=== PATIENT | male | born 1970 | race Caucasian/White ===

== ENCOUNTER 2016-04-12 04:18 | Inpatient (IN) | payer OTHER ==
[~2016-04-12] VITALS: Ht 175.3 cm; Wt 98.0 kg
[~2016-04-12 04:18] MED LIST: ASPI-1093 PO; CARV6 PO; DSS100 PO; FURO20 PO; SIMV-260 PO
[2016-04-12 04:50] LABS: BASOPHILS % (AUTO) 0.8 % (0.0-2.0); EOSINOPHILS % (AUTO) 2.1 % (1.0-6.0); HEMATOCRIT 36.3 % (41-53); HEMOGLOBIN 11.8 g/dL (13.5-17.5); LYMPHOCYTES # (AUTO) 1.2 K/uL (1.0-4.8); LYMPHOCYTES % (AUTO) 13.7 % (22.0-44.0); MEAN CORPUSCULAR HEMOGLOBIN 28.6 pg (26.0-34.0); MEAN CORPUSCULAR HGB CONC 32.6 G/dL (31.0-37.0); MEAN CORPUSCULAR VOLUME 88 fL (80-100); MONOCYTES # (AUTO) 0.8 K/uL (0.1-1.0); NEUTROPHILS # (AUTO) 6.8 K/uL (1.8-7.7); NEUTROPHILS % (AUTO) 74.4 % (40.0-70.0); PLATELET COUNT (AUTO) 223 K/uL (150-450); RED BLOOD CELL COUNT(AUTO) 4.13 MIL/uL (4.50-5.90); RED CELL DISTRIBUTION WIDTH 16.3 % (11.5-14.5); WHITE BLOOD COUNT (AUTO) 9.1 K/uL (4.5-11.0)
[2016-04-12 04:58] LABS: INR 1.3 (0.9-1.1); PROTHROMBIN TIME 13.3 SEC (9.4-11.6)
[2016-04-12 05:05] LABS: TROPONIN I 0.78 ng/mL (0.00-0.05)
[2016-04-12 05:08] LABS: ANION GAP 9 mmol/L (8-16); CARBON DIOXIDE 26 mmol/L (22-29); CHLORIDE 97 mmol/L (98-107); CREATININE 1.28 mg/dL (0.60-1.30); GLOMERULAR FILTR. RATE CALC > 60 mL/min (>60); POTASSIUM 4.2 mmol/L (3.5-5.1); SODIUM SERUM 132 mmol/L (136-145); UREA NITROGEN, BLOOD 30 mg/dL (7-18)
[2016-04-12 05:12] LABS: ALANINE AMINOTRANSFERASE 55 U/L (12-78); ALBUMIN 3.2 g/dL (3.4-5.0); BILIRUBIN,TOTAL 2.4 mg/dL (0.1-1.0); TOTAL PROTEIN, SERUM 8.8 g/dL (6.4-8.2)
[2016-04-12] MEDS ORDERED: FUROSEMIDE 40 MG/4 ML VIAL IVP ONE (05:15)
[2016-04-12] MEDS ORDERED: NITROGLYCERIN 2% (1 GM=INCH) PACKET TP ONE (05:15)
[2016-04-12] MEDS ORDERED: 0.9% SODIUM CHLORIDE 10 ML SYRINGE IVP PRN (05:15)
[2016-04-12] MEDS ORDERED: ONDANSETRON HCL 4 MG/2 ML VIAL IVP PRN (05:15)
[2016-04-12] MEDS ORDERED: ASPIRIN 325 MG TABLET PO ONE (05:15)
[2016-04-12] MEDS ORDERED: ACETAMINOPHEN 325 MG TABLET PO PRN (05:15)
[2016-04-12] MEDS ORDERED: HEPARIN SODIUM 25000 UNITS/D5W 250 ML IV PRN ×2 (05:30→05:45)
[2016-04-12 05:38] LABS: B-TYPE NATRIURETIC PEPTIDE 587 pg/mL (0-100)
[2016-04-12] MEDS ORDERED: HEPARIN SODIUM,PORCINE 5,000 UNITS/ML VIAL IVP PRN ×2 (05:45)
[2016-04-12] MEDS ORDERED: HEPARIN SODIUM,PORCINE 5,000 UNITS/ML VIAL IVP ONE (05:45)
[2016-04-12 05:56] LABS: ASPARTATE AMINOTRANSFERASE 48 U/L (15-37); CREATINE KINASE MB 1.7 ng/mL (0-5); CREATINE KINASE, TOTAL 133 U/L (39-308)
[2016-04-12 06:35] VITALS: BP 112/45
[2016-04-12 08:11] VITALS: BP 105/65
[2016-04-12] MEDS: FUROSEMIDE 40 MG/4 ML VIAL IVP SCH ×2 (09:00→21:04)
[2016-04-12] MEDS: ASPIRIN 81 MG EC TABLET PO SCH (09:00)
[2016-04-12] MEDS: CARVEDILOL 6.25 MG TABLET PO SCH ×2 (09:00→21:04)
[2016-04-12 11:59] VITALS: BP 152/96
[2016-04-12] MEDS: HEPARIN SODIUM,PORCINE 5,000 UNITS/ML VIAL SQ SCH (16:00)
[2016-04-12 16:18] VITALS: BP 142/50
[2016-04-12 19:34] VITALS: BP 119/66
[2016-04-12] MEDS: SIMVASTATIN 20 MG TABLET PO SCH (21:04)
[2016-04-13] VITALS (7 sets, daily range): BP systolic 102–145; BP diastolic 60–91
[2016-04-13 05:59] LABS: BASOPHILS # (AUTO) 0.01 K/uL (0.00-0.20); BASOPHILS % (AUTO) 0.2 % (0.0-2.0); EOSINOPHILS # (AUTO) 0.04 K/uL (0.00-0.70); EOSINOPHILS % (AUTO) 0.48 % (1.0-6.0); HEMATOCRIT 34.7 % (41-53); HEMOGLOBIN 11.6 g/dL (13.5-17.5); LYMPHOCYTES # (AUTO) 1.2 K/uL (1.0-4.8); LYMPHOCYTES % (AUTO) 15.8 % (22.0-44.0); MEAN CORPUSCULAR HEMOGLOBIN 29.1 pg (26.0-34.0); MEAN CORPUSCULAR HGB CONC 33.4 G/dL (31.0-37.0); MEAN CORPUSCULAR VOLUME 87 fL (80-100); MONOCYTES # (AUTO) 0.7 K/uL (0.1-1.0); MONOCYTES % (AUTO) 9.4 % (2.0-9.0); NEUTROPHILS # (AUTO) 5.5 K/uL (1.8-7.7); NEUTROPHILS % (AUTO) 74.2 % (40.0-70.0); PLATELET COUNT (AUTO) 228 K/uL (150-450); RED BLOOD CELL COUNT(AUTO) 3.99 MIL/uL (4.50-5.90); WHITE BLOOD COUNT (AUTO) 7.4 K/uL (4.5-11.0)
[2016-04-13 06:29] LABS: ALANINE AMINOTRANSFERASE 50 U/L (12-78); ALBUMIN 2.8 g/dL (3.4-5.0); ANION GAP 8 mmol/L (8-16); ASPARTATE AMINOTRANSFERASE 48 U/L (15-37); BILIRUBIN,TOTAL 3.2 mg/dL (0.1-1.0); CALCIUM, TOTAL 8.7 mg/dL (8.8-10.5); CARBON DIOXIDE 25 mmol/L (22-29); CHLORIDE 100 mmol/L (98-107); CREATININE 1.04 mg/dL (0.60-1.30); GLOMERULAR FILTR. RATE CALC > 60 mL/min (>60); POTASSIUM 3.9 mmol/L (3.5-5.1); SODIUM SERUM 133 mmol/L (136-145); UREA NITROGEN, BLOOD 29 mg/dL (7-18)
[2016-04-13 07:56] LABS: RBC MORPHOLOGY COMMENT ABNORMAL RBC MORPH
[2016-04-13] MEDS: HEPARIN SODIUM,PORCINE 5,000 UNITS/ML VIAL SQ SCH ×4 (08:00→23:38)
[2016-04-13] MEDS: FUROSEMIDE 40 MG/4 ML VIAL IVP SCH ×2 (08:25→20:09)
[2016-04-13] MEDS: ASPIRIN 81 MG EC TABLET PO SCH (08:27)
[2016-04-13] MEDS: CARVEDILOL 6.25 MG TABLET PO SCH ×2 (08:28→20:10)
[2016-04-13] MEDS: LISINOPRIL 10 MG TABLET PO SCH (10:16)
[2016-04-13] MEDS: SIMVASTATIN 20 MG TABLET PO SCH (20:10)
[2016-04-14 04:36] VITALS: BP 121/85
[2016-04-14 07:47] VITALS: BP 118/80
[2016-04-14] MEDS: LISINOPRIL 10 MG TABLET PO SCH (07:53)
[2016-04-14] MEDS: CARVEDILOL 6.25 MG TABLET PO SCH (07:54)
[2016-04-14] MEDS: ASPIRIN 81 MG EC TABLET PO SCH (07:54)
[2016-04-14] MEDS: HEPARIN SODIUM,PORCINE 5,000 UNITS/ML VIAL SQ SCH ×2 (07:55→16:00)
[2016-04-14 08:04] LABS: BASOPHILS % (AUTO) 1.4 % (0.0-2.0); EOSINOPHILS % (AUTO) 2.7 % (1.0-6.0); HEMATOCRIT 35.8 % (41-53); HEMOGLOBIN 11.7 g/dL (13.5-17.5); LYMPHOCYTES # (AUTO) 1.1 K/uL (1.0-4.8); LYMPHOCYTES % (AUTO) 13.4 % (22.0-44.0); MEAN CORPUSCULAR HEMOGLOBIN 28.9 pg (26.0-34.0); MEAN CORPUSCULAR HGB CONC 32.7 G/dL (31.0-37.0); MEAN CORPUSCULAR VOLUME 88 fL (80-100); MONOCYTES # (AUTO) 0.9 K/uL (0.1-1.0); MONOCYTES % (AUTO) 10.8 % (2.0-9.0); NEUTROPHILS # (AUTO) 5.9 K/uL (1.8-7.7); NEUTROPHILS % (AUTO) 71.7 % (40.0-70.0); PLATELET COUNT (AUTO) 233 K/uL (150-450); RED BLOOD CELL COUNT(AUTO) 4.05 MIL/uL (4.50-5.90); RED CELL DISTRIBUTION WIDTH 16.2 % (11.5-14.5); WHITE BLOOD COUNT (AUTO) 8.2 K/uL (4.5-11.0)
[2016-04-14] MEDS: FUROSEMIDE 40 MG/4 ML VIAL IVP SCH (08:16)
[2016-04-14 08:25] LABS: ALANINE AMINOTRANSFERASE 47 U/L (12-78); ALBUMIN 2.7 g/dL (3.4-5.0); ANION GAP 7 mmol/L (8-16); ASPARTATE AMINOTRANSFERASE 42 U/L (15-37); CALCIUM, TOTAL 8.5 mg/dL (8.8-10.5); CARBON DIOXIDE 27 mmol/L (22-29); CHLORIDE 100 mmol/L (98-107); CREATININE 0.88 mg/dL (0.60-1.30); GLOMERULAR FILTR. RATE CALC > 60 mL/min (>60); POTASSIUM 3.9 mmol/L (3.5-5.1); SODIUM SERUM 134 mmol/L (136-145); TOTAL PROTEIN, SERUM 7.8 g/dL (6.4-8.2); UREA NITROGEN, BLOOD 22 mg/dL (7-18)
[2016-04-14] MEDS ORDERED: SPIRONOLACTONE 50 MG TABLET PO ONE (10:15)
[2016-04-14] MEDS ORDERED: SPIRONOLACTONE 25 MG TABLET PO ONE (10:30)
[2016-04-14 11:01] VITALS: BP 113/81
[2016-04-14 15:48] VITALS: BP 117/78
== END 2016-04-14 18:20 | disposition home or self-care (01) | DRG 194 ==
LOC: EMS 04:19 → 5S 05:28 → 5N 15:00 → 5S 23:22
PROVIDERS: ADMIT Hospitalist; ATTEND Hospitalist
DX: I13.0 Hypertensive heart and chronic kidney disease with heart failure and stage 1 through stage 4 chronic kidney disease, or unspecified chronic kidney disease (principal); I21.4 Non-ST elevation (NSTEMI) myocardial infarction; G92 Toxic encephalopathy; N17.9 Acute kidney failure, unspecified; I42.9 Cardiomyopathy, unspecified; I50.23 Acute on chronic systolic (congestive) heart failure; N18.9 Chronic kidney disease, unspecified; F15.10 Other stimulant abuse, uncomplicated; F29 Unspecified psychosis not due to a substance or known physiological condition; I25.10 Atherosclerotic heart disease of native coronary artery without angina pectoris; Z95.810 Presence of automatic (implantable) cardiac defibrillator; Z79.899 Other long term (current) drug therapy; Z79.82 Long term (current) use of aspirin; Z91.19 Patient's noncompliance with other medical treatment and regimen; Z82.49 Family history of ischemic heart disease and other diseases of the circulatory system
CPT/HCPCS: 83735; 87081; 93005; 96374; 96375; 99285; G0480; J1644; J1940

== ENCOUNTER 2019-07-03 12:45 | Inpatient (IN) | payer OTHER ==
[~2019-07-03] VITALS: Ht 167.6 cm; Wt 108.2 kg
[~2019-07-03 12:45] MED LIST changes: -ASPI-1093 PO; +ASPI-1111 PO
[2019-07-03] MEDS ORDERED: ACETAMINOPHEN 500 MG TABLET PO ONE (13:00)
[2019-07-03] MEDS ORDERED: KETOROLAC TROMETHAMINE 30 MG/ML VIAL IVP ONE (14:15)
[2019-07-03 14:21] LABS: HEMATOCRIT 28.5 % (41-53); HEMOGLOBIN 8.6 g/dL (13.5-17.5); MEAN CORPUSCULAR HEMOGLOBIN 24.3 pg (26.0-34.0); MEAN CORPUSCULAR HGB CONC 30.3 G/dL (31.0-37.0); MEAN CORPUSCULAR VOLUME 80 fL (80-100); PLATELET COUNT (AUTO) 306 K/uL (150-450); RED BLOOD CELL COUNT(AUTO) 3.56 MIL/uL (4.50-5.90); RED CELL DISTRIBUTION WIDTH 18.2 % (11.5-14.5)
[2019-07-03] MEDS ORDERED: VANCOMYCIN HCL 1 GM/D5% WATER 200 ML IV ONE (14:30)
[2019-07-03] MEDS ORDERED: PIPERACILLIN/TAZO 3.375 GM/D5W 50 ML IV ONE (14:30)
[2019-07-03 14:34] LABS: ANION GAP 11 mmol/L (8-16); CALCIUM, TOTAL 8.4 mg/dL (8.8-10.5); CARBON DIOXIDE 25 mmol/L (22-29); CHLORIDE 97 mmol/L (98-107); CREATININE 1.22 mg/dL (0.60-1.30); GLOMERULAR FILTR. RATE CALC > 60 mL/min (>60); GLUCOSE,RANDOM 203 mg/dL (70-110); POTASSIUM 3.6 mmol/L (3.5-5.1); SODIUM SERUM 133 mmol/L (136-145); UREA NITROGEN, BLOOD 17 mg/dL (7-18)
[2019-07-03 14:49] LABS: B-TYPE NATRIURETIC PEPTIDE 2130 pg/mL (0-100)
[2019-07-03 14:58] LABS: ALANINE AMINOTRANSFERASE 138 U/L (12-78); ALKALINE PHOSPHATASE 115 U/L (46-116); ASPARTATE AMINOTRANSFERASE 104 U/L (15-37); BILIRUBIN,TOTAL 2.4 mg/dL (0.1-1.0); C-REACTIVE PROTEIN QUANT 10.41 mg/dL (0.00-0.30); CREATINE KINASE, TOTAL ONLY 279 U/L (39-308); TOTAL PROTEIN, SERUM 8.3 g/dL (6.4-8.2)
[2019-07-03 15:07] LABS: INFLUENZA TYPE A NEGATIVE FOR TYPE A (NEGATIVE)
[2019-07-03 15:08] LABS: INFLUENZA TYPE B NEGATIVE FOR TYPE B (NEGATIVE)
[2019-07-03 16:00] LABS: LACTIC ACID 4.5 mmol/L (0.4-2.0)
[2019-07-03] MEDS ORDERED: CLINDAMYCIN 900 MG/D5% WATER 50 ML IV ONE (16:00)
[2019-07-03] MEDS ORDERED: MAGNESIUM SULFATE 2 GM/WATER 50 ML IV ONE (16:00)
[2019-07-03] MEDS ORDERED: IOVERSOL 350 MG/ML 150 ML VIAL ONE (16:37)
[2019-07-03] MEDS ORDERED: SODIUM CHLORIDE 0.9% 100 ML ONE (16:37)
[2019-07-03 17:18] LABS: ERYTHROCYTE SEDIMENTATION RATE 56 MM/HR (0-15)
[2019-07-03 17:19] LABS: BAND NEUTROPHILS % (MANUAL) 20 % (0-5); LYMPHOCYTES % (MANUAL) 2 % (22-44); MONOCYTES % (MANUAL) 6 % (2-9); SEGMENTED NEUTROPHILS % 72 % (40-70)
[2019-07-03] MEDS ORDERED: ACETAMINOPHEN 325 MG TABLET PO PRN ×2 (17:30→20:45)
[2019-07-03] MEDS ORDERED: ONDANSETRON HCL 4 MG/2 ML VIAL IVP PRN ×2 (17:30→20:45)
[2019-07-03] MEDS ORDERED: 0.9% SODIUM CHLORIDE 10 ML SYRINGE IVP PRN (17:30)
[2019-07-03 18:39] VITALS: BP 108/72
[2019-07-03 20:00] VITALS: BP 128/71
[2019-07-03] MEDS ORDERED: MAGNESIUM HYDROXIDE SUSPENSION 30 ML UDCUP PO PRN (20:45)
[2019-07-03] MEDS ORDERED: MORPHINE SULFATE 2 MG/ML SYRINGE IVP PRN (20:45)
[2019-07-03] MEDS ORDERED: HYDROCODONE/ACETAMINOPHEN 5-325 MG TABLET PO PRN (20:45)
[2019-07-03] MEDS ORDERED: ZOLPIDEM TARTRATE 10 MG TABLET PO PRN (20:45)
[2019-07-03] MEDS ORDERED: IPRATROPIUM BROMIDE 0.5 MG/2.5 ML NEB SOLUTION NEB PRN (20:45)
[2019-07-03] MEDS ORDERED: HEPARIN SODIUM 25000 UNITS/D5W 250 ML IV PRN (20:48)
[2019-07-03] MEDS ORDERED: HEPARIN SODIUM,PORCINE 5,000 UNITS/ML VIAL IVP PRN ×2 (21:00)
[2019-07-03] MEDS: DOCUSATE SODIUM 100 MG CAPSULE PO SCH (21:00)
[2019-07-03] MEDS ORDERED: VANCOMYCIN HCL 1 GM/D5% WATER 200 ML IV SCH (21:00)
[2019-07-03] MEDS ORDERED: HEPARIN SODIUM,PORCINE 5,000 UNITS/ML VIAL IVP ONE (21:00)
[2019-07-03 21:18] LABS: HEMATOCRIT 24.6 % (41-53); HEMOGLOBIN 7.6 g/dL (13.5-17.5); MEAN CORPUSCULAR HEMOGLOBIN 24.4 pg (26.0-34.0); MEAN CORPUSCULAR HGB CONC 30.9 G/dL (31.0-37.0); MEAN CORPUSCULAR VOLUME 79 fL (80-100); PLATELET COUNT (AUTO) 252 K/uL (150-450); RED BLOOD CELL COUNT(AUTO) 3.12 MIL/uL (4.50-5.90)
[2019-07-03 21:28] LABS: INR 1.5 (0.9-1.1); PROTHROMBIN TIME 14.9 SEC (9.4-11.6)
[2019-07-03] MEDS ORDERED: SODIUM CHLORIDE 0.9% 1,000 ML ONE (21:55)
[2019-07-03 22:12] LABS: BAND NEUTROPHILS % (MANUAL) 44 % (0-5); LYMPHOCYTES % (MANUAL) 2 % (22-44); MONOCYTES % (MANUAL) 2 % (2-9); SEGMENTED NEUTROPHILS % 52 % (40-70)
[2019-07-03] MEDS ORDERED: VANCOMYCIN HCL 1.5 GM in DEXTROSE 5%-WATER 250 ML IV ONE (23:00)
[2019-07-04] MEDS: NITROGLYCERIN 2% (1 GM=INCH) PACKET TP SCH ×3 (00:33→12:31)
[2019-07-04 00:40] VITALS: BP 109/60
[2019-07-04] MEDS: PIPERACILLIN/TAZO 3.375 GM/D5W 50 ML IV SCH ×3 (02:22→13:05)
[2019-07-04 04:24] VITALS: BP 131/54
[2019-07-04 07:56] VITALS: BP 140/79
[2019-07-04] MEDS ORDERED: VANCOMYCIN HCL 1.5 GM in DEXTROSE 5%-WATER 250 ML IV SCH (08:00)
[2019-07-04] MEDS: DOCUSATE SODIUM 100 MG CAPSULE PO SCH (08:05)
[2019-07-04 08:28] LABS: HEMATOCRIT 25.1 % (41-53); HEMOGLOBIN 7.6 g/dL (13.5-17.5); MEAN CORPUSCULAR HEMOGLOBIN 23.7 pg (26.0-34.0); MEAN CORPUSCULAR HGB CONC 30.2 G/dL (31.0-37.0); MEAN CORPUSCULAR VOLUME 79 fL (80-100); PLATELET COUNT (AUTO) 250 K/uL (150-450); RED BLOOD CELL COUNT(AUTO) 3.19 MIL/uL (4.50-5.90)
[2019-07-04 08:43] LABS: ANION GAP 9 mmol/L (8-16); CALCIUM, TOTAL 8.3 mg/dL (8.8-10.5); CARBON DIOXIDE 25 mmol/L (22-29); CHLORIDE 97 mmol/L (98-107); CREATININE 1.07 mg/dL (0.60-1.30); GLOMERULAR FILTR. RATE CALC > 60 mL/min (>60); GLUCOSE,RANDOM 166 mg/dL (70-110); HDL CHOLESTEROL 18 mg/dL (40-60); POTASSIUM 3.8 mmol/L (3.5-5.1); SODIUM SERUM 131 mmol/L (136-145); TRIGLYCERIDES 27 mg/dL (15-150); UREA NITROGEN, BLOOD 22 mg/dL (7-18)
[2019-07-04] MEDS ORDERED: ASPIRIN 81 MG CHEWABLE TABLET PO SCH (09:00)
[2019-07-04 09:03] LABS: BAND NEUTROPHILS % (MANUAL) 25 % (0-5); LYMPHOCYTES % (MANUAL) 4 % (22-44); MONOCYTES % (MANUAL) 2 % (2-9); SEGMENTED NEUTROPHILS % 69 % (40-70)
[2019-07-04 09:12] LABS: CHOL/HDL RATIO 2.8 (4.2-7.3); CHOLESTEROL < 50 mg/dL (131-200); LDL CHOL (CALC.) 27 mg/dL (0-130)
[2019-07-04 12:10] VITALS: BP 119/77
[2019-07-04] MEDS ORDERED: SODIUM CL IRRIG SOLN BOTTLE 250 ML IRRIG ONE (12:11)
[2019-07-04] MEDS ORDERED: CARVEDILOL 6.25 MG TABLET PO SCH (13:15)
[2019-07-04] MEDS ORDERED: LISINOPRIL 5 MG TABLET PO SCH (13:15)
[2019-07-04] MEDS ORDERED: FUROSEMIDE 40 MG/4 ML VIAL IVP SCH (13:15)
[2019-07-04 13:37] VITALS: BP 132/79
== END 2019-07-04 14:45 | disposition left against medical advice (07) | DRG 720 ==
LOC: EMS 12:52 → 5N 17:21
PROVIDERS: ADMIT Hospitalist; ATTEND Hospitalist
DX: A41.9 Sepsis, unspecified organism (principal); I21.4 Non-ST elevation (NSTEMI) myocardial infarction; E87.2 Acidosis; I50.9 Heart failure, unspecified; I11.0 Hypertensive heart disease with heart failure; L03.115 Cellulitis of right lower limb; I42.8 Other cardiomyopathies; E78.5 Hyperlipidemia, unspecified; I25.10 Atherosclerotic heart disease of native coronary artery without angina pectoris; R53.81 Other malaise; S00.81XA Abrasion of other part of head, initial encounter; D64.9 Anemia, unspecified; G47.33 Obstructive sleep apnea (adult) (pediatric); J44.9 Chronic obstructive pulmonary disease, unspecified; F10.10 Alcohol abuse, uncomplicated; Y90.9 Presence of alcohol in blood, level not specified; F15.90 Other stimulant use, unspecified, uncomplicated; E78.00 Pure hypercholesterolemia, unspecified; Z82.49 Family history of ischemic heart disease and other diseases of the circulatory system; Z91.14 Patient's other noncompliance with medication regimen
CPT/HCPCS: 70450; 73701; 83605; 83735; 85651; 86140; 87040; 87635; 87804; 93005; 99291; J1644; J1885; J1940; J2543; J3370; J3475; J3490; J7030; J7050; J7060